=== PATIENT | female | born 1955 | race Caucasian/White ===

== ENCOUNTER 2017-01-04 09:21 | Emergency (ER) | payer MEDICARE, BC ==
[2017-01-04] MEDS ORDERED: predniSONE 20 MG TAB ONE (09:33)
== END 2017-01-04 09:43 | disposition home or self-care (01) ==
LOC: BURERS 09:21
DX: L23.7 Allergic contact dermatitis due to plants, except food (principal); F41.9 Anxiety disorder, unspecified; Z79.899 Other long term (current) drug therapy
CPT/HCPCS: 99282; J7506

== ENCOUNTER 2017-09-03 09:29 | Emergency (ER) | payer MEDICARE, BC ==
[2017-09-03] MEDS ORDERED: Ondansetron HCl/PF 4 MG/2 ML Vial ONE (09:43)
[2017-09-03] MEDS ORDERED: Fentanyl 100 MCG/2 ML VIAL ONE ×2 (09:43→10:27)
[2017-09-03 09:56] LABS: #Basophils 0.1 thou/uL (0.0-0.2); #Eosinphils 0.1 thou/uL (0.0-0.7); #Lymphocytes 1.1 thou/uL (1.20-3.40); #Monocytes 0.3 thou/uL (0.11-0.59); #Neutrophils 5.6 thou/uL (1.40-6.50); %Basophils 1.1 % (0.0-1.0); %Lymphocytes 15.5 % (21.0-51.0); %Monocytes 3.8 % (0.0-10.0); %Neutrophils 78.6 % (42.0-75.0); Hemoglobin 13.9 g/dL (12.0-16.0); Mean Corpuscular HGB CONC 33.8 g/dL (32.0-36.0); Mean Corpuscular Hemoglobin 30.9 pg (27.0-31.0); Mean Corpuscular Volume 91.4 fl (81.0-99.0); Mean Platelet Volume 9.1 fL (7.4-10.4); Platelet Count 196 thou/uL (130-400); RBC Distribution Width 11.3 % (11.5-14.5); Red Blood Cell (RBC) Count 4.49 mill/uL (4.20-5.40); White Blood Cell (WBC) Count 7.2 thou/uL (4.8-10.8)
[2017-09-03 10:06] LABS: ALT (SGPT) 19 U/L (8-55); AST (SGOT) 24 U/L (5-34); Albumin 4.9 g/dL (3.4-4.8); Alkaline Phosphatase 127 U/L (40-150); Anion Gap 16 mmol/L (10-20); BUN (Urea Nitrogen) 16 mg/dL (9.8-20.1); Bilirubin, Total 0.8 mg/dL (0.2-1.2); Calc. Creatinine Clearance 0 mL/min (70-130); Calcium 10.1 mg/dL (7.8-10.44); Carbon Dioxide 25 mmol/L (23-31); Chloride 103 mmol/L (98-107); Estimated GFR-MDRD 64; Globulin 3.2 g/dL (2.4-3.5); Glucose 124 mg/dL (80-115); Lipase 5 U/L (8-78); Potassium 3.9 mmol/L (3.5-5.1); Protein, Total 8.1 g/dL (6.0-8.3); Sodium 140 mmol/L (136-145)
[2017-09-03] MEDS ORDERED: Ketorolac Tromethamine 30 MG/ML VIAL ONE (10:26)
--- NOTE | 2017-09-03 18:07 | CT ---
CT ABDOMEN AND PELVIS WITHOUT CONTRAST 09/03/17 Comparison is made with the 07/14/15 CT. A noncontrast study was done. Axial slices were acquired then coronal and sagittal reconstructions we re done. The lung bases are clear. There are no effusions. There is marked dilation of the biliary system, bot h intrahepatic ducts and the common bile duct as previously. The gallbladder is also quite large, tho ugh no stones or wall thickening was seen. No gross pancreatic abnormalities were seen within the grajeda itations of a noncontrast study. The adrenal glands appear normal. The aorta is normal in caliber. There is a 5 to 6 mm calculus in the proximal right ureter causing moderate right hydronephrosis. The re are also a few more nonobstructing calculi in this kidney. No obstruction was appreciated on the p atient's left side. There is no distention of bowel to suggest obstruction. As has been mentioned previously, there is a mass at the root of the mesentery that has some calcifications within it. It is slightly larger than it was in 2016, today measuring about 5.0 x 4.5 x 2.7 cm. No free air or free fluid was seen. CT of the pelvis shows diverticulosis without obvious diverticulitis. No free fluid of concern or def inite inflammatory change was detected. IMPRESSION: 1. Moderate obstruction of the right kidney due to a 5 mm proximal right ureteral calculus. Some nonobstructing right renal calculi are still present. 2. Severe dilation of the biliary ductal system, both intra and extrahepatic. This is not a new finding and it appears similar to before. 3. Mass at the root of the mesentery with calcifications. Well-marginated but slightly larger to day than 2016. POS: HOME
== END 2017-09-03 10:48 | disposition home or self-care (01) ==
LOC: BURERS 09:29
DX: N13.2 Hydronephrosis with renal and ureteral calculous obstruction (principal); K57.90 Diverticulosis of intestine, part unspecified, without perforation or abscess without bleeding; F41.9 Anxiety disorder, unspecified; Z87.891 Personal history of nicotine dependence; Z79.899 Other long term (current) drug therapy
CPT/HCPCS: 74176; 80053; 83690; 85025; 96361; 96374; 96375; 96376; J1885; J2405; J3010

== ENCOUNTER 2019-08-01 16:46 | Emergency (ER) | payer MEDICARE, BC, OTHER ==
[2019-08-01 17:59] LABS: Hemoglobin 11.5 g/dL (12.0-16.0); Mean Corpuscular HGB CONC 32.7 g/dL (32.0-36.0); Mean Corpuscular Hemoglobin 30.7 pg (27.0-31.0); Mean Corpuscular Volume 93.8 fL (78.0-98.0); Mean Platelet Volume 15.3 fL (7.4-10.4); Platelet Count 21 thou/uL (130-400); RBC Distribution Width 14.1 % (11.5-14.5); Red Blood Cell (RBC) Count 3.74 mill/uL (4.20-5.40); White Blood Cell (WBC) Count 23.7 thou/uL (4.8-10.8)
[2019-08-01 18:08] LABS: ALT (SGPT) 22 U/L (8-55); AST (SGOT) 22 U/L (5-34); Alkaline Phosphatase 600 U/L (40-110); Anion Gap 15 mmol/L (10-20); BUN (Urea Nitrogen) 49 mg/dL (9.8-20.1); Bilirubin, Total 1.8 mg/dL (0.2-1.2); Calc. Creatinine Clearance 0 mL/min (70-130); Calcium 8.5 mg/dL (7.8-10.44); Carbon Dioxide 19 mmol/L (23-31); Chloride 104 mmol/L (98-107); Estimated GFR-MDRD 64; Globulin 3.4 g/dL (2.4-3.5); Glucose 119 mg/dL (80-115); Protein, Total 6.4 g/dL (6.0-8.3); Sodium 134 mmol/L (136-145)
[2019-08-01] MEDS ORDERED: cefTRIAXone\\ROCEPHIN 2 GM VIAL ONE (18:12)
[2019-08-01] MEDS ORDERED: Sodium Chloride 0.9% 100 ML ONE (18:13)
[2019-08-01 18:18] LABS: Band 49 % (5-11); Large Platelets SLIGHT; Lymphocytes 2 % (21-51); MDiff Complete? YES; Metamyelocyte 1 % (0-0); Monocytes 7 % (0-10); Neutrophil 41 % (42-75); Toxic Granulation SLIGHT; Vacuoles MARKED
[2019-08-01 18:23] LABS: Bilirubin Small (Negative); Blood, Urine Trace (Negative); Clarity Cloudy (Clear); Glucose, Urine (Dipstick) Negative (Negative); Leukocyte Negative (Negative); Nitrite Negative (Negative); Protein, Urine (Dipstick) 30 mg/dL (Neg-Trace)
[2019-08-01 18:30] LABS: Bacteria/HPF 2+ HPF (None Seen); RBC/HPF 0-3 HPF (0-3); WBC/HPF 0-3 HPF (0-3)
[2019-08-01 18:31] LABS: Mucous/LPF Few LPF (<2+)
[2019-08-01] MEDS ORDERED: Vancomycin 1.5 GRAM/300 ML BAG 1.5 GM/300 ML BAG ONE (18:45)
--- NOTE | 2019-08-01 22:45 | RAD ---
PORTABLE CHEST: 08/01/19 An AP portable film at 1736 is compared with a 06/05/13 study. A right subclavian catheter is present today with its tip in the vicinity of the lower superior vena cava/right atrial junction. Both lungs seem fully inflated and clear. No lobar infiltrate or effusio n was seen. There is a 1.8 cm nodular density seen through the heart shadow that is not visible on th e prior study. This could easily just be a prominent vessel or node, however, it is distinctly differ ent than before. I would recommend an elective follow-up PA and lateral view, and if still present an d concerning, then consider a CT. IMPRESSION: 1. No evidence of acute pneumonia. 2. 1.8 cm nodular density in the left lung seen through the heart shadow. This could be a benign as a prominent vessel or could be an actual nodule. Elective follow-up two view chest film recommend ed. Code T POS: HOME
== END 2019-08-01 20:23 | disposition home or self-care (01) ==
LOC: BURERS 16:46
DX: E86.0 Dehydration (principal); D72.829 Elevated white blood cell count, unspecified; F41.9 Anxiety disorder, unspecified; Z87.891 Personal history of nicotine dependence; Z79.899 Other long term (current) drug therapy
CPT/HCPCS: 71045; 80053; 81003; 81015; 83605; 85025; 87040; 87077; 87086; 87149; 87186; 96365; 96367; J0696; J3490